=== PATIENT | male | born 1975 | race Caucasian/White ===

== ENCOUNTER 2016-08-22 05:22 | Emergency (ER) | payer OTHER ==
[~2016-08-22] VITALS: Ht 185.4 cm; Wt 76.2 kg
[2016-08-22] MEDS ORDERED: SEROQUEL100 MG PO (05:29)
[2016-08-22] MEDS ORDERED: REMERON15 M2 PO (05:29)
[2016-08-22] MEDS ORDERED: ZITHROMAX250 MG PO (06:07)
[2016-08-22] MEDS ORDERED: VENTOLIN H0.09 MG/AC INH (06:07)
[2016-08-22] MEDS ORDERED: CLARITIN-D 12 H1 TAB PO (06:07)
== END 2016-08-22 06:37 | disposition home or self-care (01) ==
LOC: ED 05:22
DX: J20.9 Acute bronchitis, unspecified (principal); J01.90 Acute sinusitis, unspecified; J10.1 Influenza due to other identified influenza virus with other respiratory manifestations; F17.200 Nicotine dependence, unspecified, uncomplicated; Z91.040 Latex allergy status; Z79.899 Other long term (current) drug therapy